=== PATIENT | female | born 1960 | race Caucasian/White ===

== ENCOUNTER 2023-03-18 13:48 | Outpatient (AMB) | payer MEDICAID, SELFPAY ==
[2023-03-18 13:57] VITALS: BMI 54.1
--- NOTE | 2023-03-18 13:57 | A.OFFVIS_ITS ---
Intake VS Expanded 03/18/23 13:57 03/27/23 13:22 Height 5 ft 1 in 5 ft 1 in Weight 286 lb 2.56 oz 286 lb BMI 54.1 54.0 Intake Visit Reasons: Dm2, Morbid Obesity-LVM HPI Nutrition Presentation Details Pt presents for MNT for T2DM, ANTONIA, HTN, Obesity. The Pt was referred by Shantel Best PCP from [facility] Pt reports also having CHF Typically has 3 meals/day breakfast bagel with cream cheese, or cereal with snack on crackers, sweets if craving L: chicken, home made soup (freezes it) D: take out pizza or roll contour grinder, water/sugar free ice tea or diet beverages Pt reports following up with psychologist at [facility] [place]: Andrew Gilman physical activity: sedentary ETOH/SMoking: --- UKM-Efyxopm-Nk.Jeor Equation Height 5 ft 1 in Weight 286 lb Resting Metabolic Rate 1803.23 Calculated Activity Level Sedentary Calories Needed to Maintain Weight 2163.88 Diagnosis Nutrition problem #1 excessive energy intake As related to (etiology) #1 diagnosis As evidenced by (sign/symptom) #1 food recall and high BMI (54 on 03/2023) Monitoring/Goals Nutrition problem monitoring total energy intake, level of knowledge/skill and weight Learning/Education Readiness to learn fair Stages of change pre-contemplation Most Recent Diabetes Results: No Data to Display [facility] Medical History (Updated 03/27/23 @ 13:16 by Nia Lawrence, RD, LDN) HTN (hypertension) Assessment & Plan Assessment & Plan (1) T2DM (type 2 diabetes mellitus): Code(s): E11.9 - Type 2 diabetes mellitus without complications (2) Morbid obesity with BMI of 50.0-59.9, adult: Code(s): E66.01 - Morbid (severe) obesity due to excess calories; Z68.43 - Body mass index [BMI] 50.0-59.9, adult Plan: Wt: 130 kg Est kcal needs as per MSJ: 2200 (40% carb, 30% protein/fat) Est fluid needs as per 25 ml/d: 3250 Est prot per day as per 1 g/kg bw: 130 Recommend fiber intake : 8-10 g per day and gradually increase to 25-28 g per day for women and 35-38 g for men or as tolerated Recommend sodium intake per day : less than 2000 mg Educated patient on: ( R = reviewed V = verbalizes understanding N/R = needs review N/A = not applicable * Food sources of carbohydrate, adequate serving sizes and its role in various health conditions: R * lean protein sources of foods: R * Differences between complex carbohydrates a simple carbohydrates, role of fiber in diet: NR * Differences between types of fats and role in diet (mono on saturated fat fatty acids, saturated fatty acids, trans fats): NR * Food sources of sodium in salt and healthy modifications for heart health in kidney health: NR * Vitamins and minerals: NR * Healthy plate method concept: R * Physical activity: Benefits a precaution: NR * Hypoglycemia protocol (rule of 15): R * Dietary prevention of Hyperglycemia: R Plan Work on reducing on carbs/sugars/starches to Patient Instructions: Reduce on total carbohydrate at dinner to less than 80 g choose low sodium food options (foods with no batter ) Have a fruit in place of pastries once a day Coding Level of Care Code Nutr Indiv Intake (58529) Diagnoses T2DM (type 2 diabetes mellitus) E11.9 Morbid obesity with BMI of 50.0-59.9, adult E66.01; Z68.43 Time Spent (min) 30
[2023-03-27 13:22] VITALS: BMI 54.0
== END 2023-03-18 14:32 | disposition home or self-care (01) ==
PROVIDERS: PCP Family Medicine; Visit Provider Dietitian, Registered
DX: E11.9 Type 2 diabetes mellitus without complications (principal); E66.01 Morbid (severe) obesity due to excess calories; Z68.43 Body mass index [BMI] 50.0-59.9, adult

== ENCOUNTER → 2023-03-18 13:48 | Outpatient (BNVA) | payer MEDICAID, SELFPAY | PROVIDERS: PCP Family Medicine; Visit Provider Dietitian, Registered | DX: E11.9 Type 2 diabetes mellitus without complications (principal); E66.01 Morbid (severe) obesity due to excess calories; Z68.43 Body mass index [BMI] 50.0-59.9, adult | CPT/HCPCS: 97802 ==